=== PATIENT | female | born 1995 | race African-American/Black ===

== ENCOUNTER 2017-03-02 00:06 | Emergency (ER) | payer SELFPAY ==
[2017-03-02 00:09] VITALS: BP 142/88; PULSE 68; RESP 16; TEMP 98.6; O2SAT 97
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
[2017-03-02] MEDS ORDERED: KETOROLAC TROMETHAMINE 60 MG/2 ML (IM) VIAL IM ONE (01:00)
[2017-03-02] MEDS ORDERED: ORPHENADRINE INJ 60 MG/2 ML AMP IM ONE (01:00)
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
[2017-03-02] MEDS ORDERED: IBUP800T23 PO (01:56)
== END 2017-03-02 02:29 | disposition home or self-care (01) ==
LOC: NEPD 00:06
DX: S43.402A Unspecified sprain of left shoulder joint, initial encounter (principal); S20.212A Contusion of left front wall of thorax, initial encounter; S39.012A Strain of muscle, fascia and tendon of lower back, initial encounter; F17.210 Nicotine dependence, cigarettes, uncomplicated; Y04.2XXA Assault by strike against or bumped into by another person, initial encounter
CPT/HCPCS: 71010; 73030; 96372; 99284; J1885; J2360